=== PATIENT | male | born 1945 | race Caucasian/White ===

== ENCOUNTER → 2017-04-24 | Outpatient (CLI) | END | disposition home or self-care (01) ==

== ENCOUNTER 2017-05-13 17:09 | Inpatient (IN) | payer OTHER, SELFPAY ==
[~2017-05-13] VITALS: Ht 177.8 cm; Wt 142.9 kg
[~2017-05-13 17:09] MED LIST: ASCO500 PO; ASPI325 PO; ATOR20 PO; ATOR40TA; Amlodipine Besyl5 MG PO; FENO160 PO; GLIM4 PO; GLYMET5; Glucophage1000 MG PO; INSU100I6; INSULANI; INSULANPEN; LISHYD2025; LISHYD2025 PO; LISI20 PO; Multiple Vitam1 EAC1 PO; NAPR500 PO; PREDNISONE; Purinethol50 MG PO; Terazosin HCl10 MG PO
[2017-05-13 17:41] LABS: BASOPHILS ABSOLUTE AUTO 0.03 K/mm3 (0.00-0.23); BASOPHILS PERCENT AUTO 1 % (0-2); EOSINOPHILS ABSOLUTE AUTO 0.25 K/mm3 (0.00-0.68); EOSINOPHILS PERCENT AUTO 5 % (0-6); Hematocrit 38.7 % (37.0-53.0); Hemoglobin 12.6 g/dL (13.5-17.5); IMMATURE GRAN ABSOLUTE AUTO 0.04 K/mm3 (0.00-0.10); IMMATURE GRAN PERCENT AUTO 1 % (0-1); LYMPHOCYTES ABSOLUTE AUTO 1.18 K/mm3 (0.84-5.20); LYMPHOCYTES PERCENT AUTO 22 % (21-46); MONOCYTES ABSOLUTE AUTO 0.62 K/mm3 (0.16-1.47); MONOCYTES PERCENT AUTO 12 % (4-13); Mean Corpuscular HGB 30.8 pg (26.0-34.0); Mean Corpuscular HGB Conc 32.6 g/dL (31.5-36.5); Mean Corpuscular Volume 95 fL (80-100); Mean Platelet Volume 9.4 fL (9.1-12.4); NEUTROPHILS ABSOLUTE AUTO 3.19 K/mm3 (1.96-9.15); NEUTROPHILS PERCENT AUTO 60 % (41-73); Platelet Count 197 K/mm3 (150-400); RDW Coefficient Variation 14.4 % (11.7-14.2); Red Blood Cell Count 4.09 M/mm3 (4.30-5.90); White Blood Cell Count 5.31 K/mm3 (4.00-11.30)
[2017-05-13 18:15] LABS: Alanine Aminotransfer (ALT/SGP 26 U/L (12-78); Albumin, Blood 3.1 g/dL (3.4-5.0); Albumin/Globulin Ratio 0.8 (0.8-1.8); Alk Phos 49 U/L (50-136); Anion Gap 6 mmol/L (6-16); Aspartate Aminotrans (AST/SGOT 20 U/L (12-37); Bilirubin, Total 0.6 mg/dL (0.1-1.0); Blood Urea Nitrogen 13 mg/dL (8-24); Bun/Creatinine Ratio 17.2 (12.0-20.0); CO2, Blood 28 mmol/L (21-32); Calcium, Blood 8.5 mg/dL (8.5-10.1); Chloride, Blood 108 mmol/L (98-108); Creatinine, Blood 0.76 mg/dL (0.60-1.20); Globulin, Blood 4.1 g/dL (2.2-4.0); Glomerular Filtration Rate >60 (60-); Glucose, Blood 175 mg/dL (70-99); Sodium, Blood 142 mmol/L (136-145); Total Protein, Blood 7.2 g/dL (6.4-8.2); Troponin I 0.017 ng/mL (0.000-0.040)
[2017-05-13 19:50] LABS: PCO2 Arterial 47.4 mmHg (35-45); PO2 Arterial 52.3 mmHg (80-100); pH Blood Arterial 7.39 (7.35-7.45)
[2017-05-13] MEDS ORDERED: AMLO5 PO (22:44)
[2017-05-13] MEDS ORDERED: ATOR40TA PO (22:47)
[2017-05-13] MEDS ORDERED: ASPI500 PO (22:47)
[2017-05-13] MEDS ORDERED: INSULANPEN SC (22:48)
[2017-05-13] MEDS ORDERED: NAPR500 PO (22:49)
[2017-05-13] MEDS ORDERED: GABA100 PO (22:51)
[2017-05-14 05:22] LABS: PCO2 Arterial 59.7 mmHg (35-45); PO2 Arterial 71.9 mmHg (80-100); pH Blood Arterial 7.28 (7.35-7.45)
[2017-05-15 05:51] LABS: Anion Gap 7 mmol/L (6-16); Blood Urea Nitrogen 22 mg/dL (8-24); Bun/Creatinine Ratio 23.7 (12.0-20.0); CO2, Blood 30 mmol/L (21-32); Calcium, Blood 8.9 mg/dL (8.5-10.1); Chloride, Blood 102 mmol/L (98-108); Creatinine, Blood 0.93 mg/dL (0.60-1.20); Glomerular Filtration Rate >60 (60-); Glucose, Blood 267 mg/dL (70-99); Potassium, Blood 4.3 mmol/L (3.5-5.5); Sodium, Blood 139 mmol/L (136-145)
[2017-05-16 06:10] LABS: Anion Gap 7 mmol/L (6-16); Blood Urea Nitrogen 30 mg/dL (8-24); Bun/Creatinine Ratio 36.8 (12.0-20.0); CO2, Blood 33 mmol/L (21-32); Calcium, Blood 9.2 mg/dL (8.5-10.1); Chloride, Blood 99 mmol/L (98-108); Creatinine, Blood 0.82 mg/dL (0.60-1.20); Glomerular Filtration Rate >60 (60-); Glucose, Blood 236 mg/dL (70-99); Potassium, Blood 4.2 mmol/L (3.5-5.5); Sodium, Blood 139 mmol/L (136-145)
[2017-05-17 06:16] LABS: Anion Gap 7 mmol/L (6-16); Blood Urea Nitrogen 31 mg/dL (8-24); Bun/Creatinine Ratio 35.8 (12.0-20.0); CO2, Blood 36 mmol/L (21-32); Calcium, Blood 9.3 mg/dL (8.5-10.1); Chloride, Blood 97 mmol/L (98-108); Creatinine, Blood 0.87 mg/dL (0.60-1.20); Glomerular Filtration Rate >60 (60-); Glucose, Blood 175 mg/dL (70-99); Potassium, Blood 3.9 mmol/L (3.5-5.5); Sodium, Blood 140 mmol/L (136-145)
[2017-05-18 05:32] LABS: Anion Gap 6 mmol/L (6-16); Blood Urea Nitrogen 35 mg/dL (8-24); Bun/Creatinine Ratio 32.7 (12.0-20.0); CO2, Blood 36 mmol/L (21-32); Calcium, Blood 9.5 mg/dL (8.5-10.1); Chloride, Blood 97 mmol/L (98-108); Creatinine, Blood 1.07 mg/dL (0.60-1.20); Glomerular Filtration Rate >60 (60-); Glucose, Blood 177 mg/dL (70-99); Potassium, Blood 3.5 mmol/L (3.5-5.5); Sodium, Blood 139 mmol/L (136-145)
[2017-05-18] MEDS ORDERED: Amlodipine Besy10 MG PO (15:25)
[2017-05-18] MEDS ORDERED: ASPI325 PO (15:25)
[2017-05-18] MEDS ORDERED: GABA300 PO (15:26)
[2017-05-18] MEDS ORDERED: INSULANPEN SC (15:26)
[2017-05-18] MEDS ORDERED: ACET325 PO (15:27)
[2017-05-18] MEDS ORDERED: FURO20 PO (15:27)
[2017-05-18] MEDS ORDERED: Omeprazole20 M1 PO (15:28)
[2017-05-18] MEDS ORDERED: DULERA 200 MCG/13 GM INH (15:28)
[2017-05-18] MEDS ORDERED: TIMO10T BOTHEYES (15:30)
[2017-05-18] MEDS ORDERED: TIOT18 INH (15:31)
[2017-05-18] MEDS ORDERED: Micro-K10 MEQ PO (15:32)
== END 2017-05-18 16:25 | disposition home or self-care (01) | DRG 189 ==
LOC: ER 17:09 → MEDS 20:51 → ENPENDDIS 05-18 15:23 → MEDS 05-18 16:25
PROVIDERS: Emergency Medicine; Hospitalist; Internal Medicine Endocrinology, Diabetes & Metabolism
DX: J96.01 Acute respiratory failure with hypoxia (principal); K51.90 Ulcerative colitis, unspecified, without complications; E66.01 Morbid (severe) obesity due to excess calories; E11.9 Type 2 diabetes mellitus without complications; J44.1 Chronic obstructive pulmonary disease with (acute) exacerbation; Z68.42 Body mass index [BMI] 45.0-49.9, adult; J96.02 Acute respiratory failure with hypercapnia; I10 Essential (primary) hypertension; Z79.4 Long term (current) use of insulin; E78.5 Hyperlipidemia, unspecified; K21.9 Gastro-esophageal reflux disease without esophagitis; G47.30 Sleep apnea, unspecified; Z87.891 Personal history of nicotine dependence; R59.1 Generalized enlarged lymph nodes; G47.33 Obstructive sleep apnea (adult) (pediatric); B34.9 Viral infection, unspecified
CPT/HCPCS: 36415; 36600; 70491; 71260; 80048; 80053; 82803; 82947; 83735; 83880; 84484; 85025; 93005; 93010; 93306; 94640; 94660; 94760; 94761; 94762; 99285; J0360; J1815; J1940; J2930; Q9967

== ENCOUNTER → 2017-10-16 | Outpatient (CLI) | payer OTHER, SELFPAY ==
[~2017-10-16] MED LIST changes: +ACET325 PO; +AMLO5 PO; +ASPI500 PO; +ATOR40TA PO; +Amlodipine Besy10 MG PO; +DULERA 200 MCG/13 GM INH; +FURO20 PO; +GABA100 PO; +GABA300 PO; +INSULANPEN SC; +Micro-K10 MEQ PO; +Omeprazole20 M1 PO; +TIMO10T BOTHEYES; +TIOT18 INH
== END | disposition home or self-care (01) ==
LOC: PLD 13:44 → LAB SHORT 13:44
DX: L82.1 Other seborrheic keratosis (principal)
CPT/HCPCS: 88305

== ENCOUNTER → 2018-04-18 | Outpatient (CLI) | payer OTHER ==
[2018-04-21 15:01] LABS: Adenovirus F 40/41 Not Detected (NOT DETECT); Astrovirus Not Detected (NOT DETECT); Campylobacter Sp Not Detected (NOT DETECT); Cryptosporidium Not Detected (NOT DETECT); Cyclospora Cayetanensis Not Detected (NOT DETECT); E. Coli O157 Not Detected (NOT DETECT); Entamoeba Histolytica Not Detected (NOT DETECT); Enteroaggregative E. coli-EAEC Not Detected (NOT DETECT); Enteropathogenic E. coli-EPEC Not Detected (NOT DETECT); Enterotoxigenic E. coli-ETEC Not Detected (NOT DETECT); Giardia Lamblia Not Detected (NOT DETECT); Norovirus GI/GII Not Detected (NOT DETECT); Plesiomonas Shigelloides Not Detected (NOT DETECT); Rotavirus A Not Detected (NOT DETECT); Salmonella Sp Not Detected (NOT DETECT); Sapovirus Not Detected (NOT DETECT); Shiga Toxin-prod E. coli-STEC Not Detected (NOT DETECT); Shigella/Enteroin E. coli-EIEC Not Detected (NOT DETECT); Vibrio Cholerae Not Detected (NOT DETECT); Vibrio Sp Not Detected (NOT DETECT); Yersinia Enterocolitica Not Detected (NOT DETECT)
== END | disposition home or self-care (01) ==
LOC: LAB 14:35 → LAB SHORT 14:35
PROVIDERS: Internal Medicine Gastroenterology
DX: K51.00 Ulcerative (chronic) pancolitis without complications (principal); R19.7 Diarrhea, unspecified
CPT/HCPCS: 83993; 87507

== ENCOUNTER 2018-04-23 11:58 | Day surgery (SDC) | payer OTHER ==
[~2018-04-23] VITALS: Ht 177.8 cm; Wt 135.2 kg
== END 2018-04-23 14:50 | disposition home or self-care (01) ==
LOC: ORSCSDS 11:58
PROVIDERS: Internal Medicine Gastroenterology
PROC: 0DBM8ZX Excision of Descending Colon, Via Natural or Artificial Opening Endoscopic, Diagnostic (ICD-10-PCS; principal; 2018-04-23 13:45)
PROC: 0DBE8ZX Excision of Large Intestine, Via Natural or Artificial Opening Endoscopic, Diagnostic (ICD-10-PCS; principal; 2018-04-23 13:45)
DX: R19.7 Diarrhea, unspecified (principal); K51.00 Ulcerative (chronic) pancolitis without complications; D12.4 Benign neoplasm of descending colon; Z86.010 Personal history of colon polyps; I10 Essential (primary) hypertension; G47.33 Obstructive sleep apnea (adult) (pediatric); E11.9 Type 2 diabetes mellitus without complications; E66.01 Morbid (severe) obesity due to excess calories; Z68.41 Body mass index [BMI] 40.0-44.9, adult; Z79.899 Other long term (current) drug therapy; Z79.4 Long term (current) use of insulin; Z79.82 Long term (current) use of aspirin
CPT/HCPCS: 82947; 88305; J1980; J2250; J7120